=== PATIENT | male | born 1955 | race Caucasian/White ===

== ENCOUNTER 2024-07-16 17:50 | Emergency (ER) | payer MEDICARE, OTHER ==
--- NOTE | 2024-07-16 18:42 | ED ---
General Adult HPI - General Chief complaint: Extremity Injury, Lower Stated complaint: R knee pain Time Seen by Provider: 07/16/24 17:59 Source: patient Mode of arrival: ambulatory Limitations: no limitations - History of Present Illness Initial comments: 69-year-old male presenting with chief complaint of right knee pain. He reports that on Monday he knelt down onto the knee and since then he has had pain and swelling. Patient and report that this has happened in the past. [facility] but was unable to get in sooner so he came here. There is some mild redness but this seems to be directly over the area of pressure and does not encompass the entire joint. No fever. No other injury. No numbness or tingling. - Related Data Allergies Allergy/AdvReac Type Severity Reaction Status Date / Time aspirin AdvReac Swelling Verified 07/16/24 17:57 lisinopril AdvReac Swelling Verified 07/16/24 17:57 Review of Systems ROS Statement: Those systems with pertinent positive or pertinent negative responses have been documented in the HPI. ROS Other: All systems not noted in ROS Statement are negative. Past Medical History Past Medical History: COPD, Hypertension History of Any Multi-Drug Resistant Organisms: None Reported Past Surgical History: Heart Catheterization With Stent Past Psychological History: No Psychological Hx Reported Smoking Status: Former smoker Past Alcohol Use History: Occasional Past Drug Use History: None Reported General Exam Limitations: no limitations General appearance: alert, in no apparent distress Head exam: Present: atraumatic, normocephalic, normal inspection Eye exam: Present: normal appearance, EOMI Neck exam: Present: normal inspection. Absent: meningismus Respiratory exam: Absent: respiratory distress Cardiovascular Exam: Present: regular rate Right Knee exam: Present: tenderness, swelling Neurological exam: Present: alert, oriented X3 Psychiatric exam: Present: normal affect, normal mood Skin exam: Present: warm, dry, intact Course Vital Signs 07/16/24 07/16/24 17:54 20:02 Temperature 97.5 F L 98.1 F Pulse Rate 82 74 Respiratory 18 16 Rate Blood Pressure 155/80 142/80 O2 Sat by Pulse 96 98 Oximetry Medical Decision Making - Medical Decision Making Was pt. sent in by a medical professional or institution (, PA, MEDICAL CENTER DIRECTOR, urgent care, hospital, or prison...) When possible be specific @ -No Did you speak to anyone other than the patient for history (EMS, parent, family, police, friend...)? What history was obtained from this source @ - Did you review nursing and triage notes (agree or disagree)? Why? @ -I reviewed and agree with nursing and triage notes Were old charts reviewed (outside hosp., previous admission, EMS record, old EKG, old radiological studies, urgent care reports/EKG's, prison records)? Report findings @ -No old charts were reviewed Differential Diagnosis (chest pain, altered mental status, abdominal pain women, abdominal pain men, vaginal bleeding, weakness, fever, dyspnea, syncope, headache, dizziness, GI bleed, back pain, seizure, CVA, palpatations, mental health, musculoskeletal)? @ -Differential Musculoskeletal Muscular strain, contusion, ligament sprain, fracture, arthritis, septic arthritis, bursitis, cellulitis, muscle spasm, nerve compression, DVT, arterial occlusion, herpes zoster, electrolyte abnormality, tumor.... This is not meant to be in all inclusive list EKG interpreted by me (3pts min.). @ -As above X-rays interpreted by me (1pt min.). @ -X-ray shows no acute osseous pathology. Small suprapatellar joint effusion. Mild prepatellar soft tissue swelling CT interpreted by me (1pt min.). @ -None done U/S interpreted by me (1pt. min.). @ -None done What testing was considered but not performed or refused? (CT, X-rays, U/S, lab s)? Why? @ -None What meds were considered but not given or refused? Why? @ -None Did you discuss the management of the patient with other professionals (professionals i.e. , PA, MEDICAL CENTER DIRECTOR, lab, RT, psych nurse, social media job titles, block paver, teacher, labor relations officer, bilingual case manager)? Give summary @ -No Was smoking cessation discussed for >3mins.? @ -No Was critical care preformed (if so, how long)? @ -No Were there social determinants of health that impacted care today? How? (Homelessness, low income, unemployed, alcoholism, drug addiction, transportation, low edu. Level, literacy, decrease access to med. care, [place] [facility], rehab)? @ -No Was there de-escalation of care discussed even if they declined (Discuss DNR or withdrawal of care, Hospice)? DNR status @ -No What co-morbidities impacted this encounter? (DM, HTN, Smoking, COPD, CAD, Cancer, CVA, ARF, Chemo, Hep., AIDS, mental health diagnosis, sleep apnea, morbid obesity)? @ -None Was patient admitted / discharged? Hospital course, mention meds given and route, prescriptions, significant lab abnormalities, going to OR and other pertinent info. @ -69-year-old male presenting with chief complaint of right knee pain and swelling. History and physical examination are conducted. He does have some mild redness over the knee, this is not hooker red erythema does not appear consistent with cellulitis. No breaks in the skin. There is some localized swelling over the knee but no true joint swelling. He does have normal range of motion. Mildly elevated BUN and creatinine, patient has history of CKD. The x- ray shows no acute osseous pathology. Most likely due to bursitis. Patient states that he has had this swelling in the past as well. He never required any antibiotics, at one point he did follow-up with orthopedics and he did have it drained. He does have an upcoming appointment with orthopedics in July. Educated on supportive management at home and instructed to follow-up at his scheduled appointment. Provided with pain meds for home. Follow-up with PCP. Report back to ER with any new or worsening symptoms. Discussed return parameters and answered all questions. Patient conveyed verbal understanding and agreed to the plan. I discussed this case in detail with my attending Dr. Britt Undiagnosed new problem with uncertain prognosis? @ -No Drug Therapy requiring intensive monitoring for toxicity (Heparin, Nitro, Insulin, Cardizem)? @ -No Were any procedures done? @ -No Diagnosis/symptom? @ -Bursitis Acute, or Chronic, or Acute on Chronic? @ -Acute Uncomplicated (without systemic symptoms) or Complicated (systemic symptoms)? @ -Uncomplicated Side effects of treatment? @ -No Exacerbation, Progression, or Severe Exacerbation? @ -No Poses a threat to life or bodily function? How? (Chest pain, [place], MA, pneumonia, PE, COPD, DKA, ARF, appy, cholecystitis, CVA, Diverticulitis, Homicidal, Suicidal, threat to staff... and all critical care pts) @ -Unlikely - Lab Data Result diagrams: 07/16/24 18:40 07/16/24 18:40 Lab Results 07/16/24 07/16/24 Range/Units 18:40 18:40 WBC 11.82 H (4.50-10.00) 10*3/uL RBC 4.53 (4.40-5.60) 10*6/uL Hgb 15.0 (13.0-17.0) g/dL Hct 41.6 (39.6-50.0) % MCV 91.8 (80.0-97.0) fL MCH 33.1 H (27.0-32.0) pg MCHC 36.1 (32.0-37.0) g/dL Plt Count 276 (140-440) 10*3/uL MPV 9.3 L (9.5-12.2) fL Immature Gran % (Auto) 0.7 % Neutrophils % 73.1 % Lymphocytes % 13.5 % Monocytes % 9.2 % Eosinophils % 3.0 % Basophils % 0.5 % Immature Gran # 0.08 H (0.00-0.04) 10*3/uL Neutrophils # 8.63 H (1.80-7.70) 10*3/uL Lymphocytes # 1.60 (0.90-5.00) 10*3/uL Monocytes # 1.09 H (0.20-1.00) 10*3/uL Eosinophils # 0.36 H (0.04-0.35) 10*3/uL Basophils # 0.06 (0.00-0.10) 10*3/uL Sodium 140 (137-145) mmol/L Potassium 3.3 L (3.5-5.1) mmol/L Chloride 104 (98-107) mmol/L Carbon Dioxide 25 (22-30) mmol/L Anion Gap 11 mmol/L BUN 29 H (9-20) mg/dL Creatinine 1.86 H (0.66-1.25) mg/dL Est GFR (CKD-EPI)AfAm 42 (>60 ml/min/1.73 sqM) Est GFR (CKD-EPI)NonAf 36 (>60 ml/min/1.73 sqM) Glucose 152 H (74-99) mg/dL Uric Acid 4.2 (3.5-8.5) mg/dL Calcium 9.8 (8.4-10.2) mg/dL Total Bilirubin 0.6 (0.2-1.3) mg/dL AST 46 (17-59) U/L ALT 49 (4-49) U/L Alkaline Phosphatase 61 (38-126) U/L Total Protein 6.7 (6.3-8.2) g/dL Albumin 3.7 (3.5-5.0) g/dL Disposition Clinical Impression: Bursitis Disposition: HOME SELF-CARE Condition: Good Instructions (If sedation given, give patient instructions): Knee Bursitis (ED) Additional Instructions: Follow-up with your orthopedic doctor. Take medication as prescribed. Rest ice and elevate the leg. You may use Prakash wrap for some gentle compression over the area. Is patient prescribed a controlled substance at d/c from ED?: No Referrals: Heather Sears DO [Primary Care Provider] - 1-2 days Joaquin Singh DO [Doctor of Osteopathic Medicine] - 1-2 days Time of Disposition: 19:56
[2024-07-16 18:47] LABS: Basophils # (A) 0.06 10*3/uL (0.00-0.10); Basophils % (A) 0.5 %; Eosinophils # (A) 0.36 10*3/uL (0.04-0.35); HCT 41.6 % (39.6-50.0); Lymphocytes % (A) 13.5 %; MCH 33.1 pg (27.0-32.0); MCHC 36.1 g/dL (32.0-37.0); MCV 91.8 fL (80.0-97.0); Mean Platelet Volume 9.3 fL (9.5-12.2); Monocytes # (A) 1.09 10*3/uL (0.20-1.00); Monocytes % (A) 9.2 %; Neutrophils # (A) 8.63 10*3/uL (1.80-7.70); Neutrophils % (A) 73.1 %; Platelet Count 276 10*3/uL (140-440); RBC 4.53 10*6/uL (4.40-5.60); RDW 12.1 % (11.5-14.5); WBC 11.82 10*3/uL (4.50-10.00)
[2024-07-16] MEDS: MORPHINE SULFATE 4 MG/ML SYRINGE IVP STA (18:56)
[2024-07-16 18:57] LABS: ALT 49 U/L (4-49); AST 46 U/L (17-59); African American GFR (CKD) 42 (>60 ml/min/1.73 sqM); Albumin 3.7 g/dL (3.5-5.0); Alkaline Phosphatase 61 U/L (38-126); Anion Gap 11 mmol/L; Blood Urea Nitrogen 29 mg/dL (9-20); Calcium 9.8 mg/dL (8.4-10.2); Carbon Dioxide 25 mmol/L (22-30); Chloride 104 mmol/L (98-107); Glucose 152 mg/dL (74-99); Non-African American GFR(CKD) 36 (>60 ml/min/1.73 sqM); Potassium 3.3 mmol/L (3.5-5.1); Sodium 140 mmol/L (137-145); Total Bilirubin 0.6 mg/dL (0.2-1.3); Total Protein 6.7 g/dL (6.3-8.2); Uric Acid 4.2 mg/dL (3.5-8.5)
--- NOTE | 2024-07-16 19:00 | XR ---
EXAMINATION TYPE: XR knee complete RT DATE OF EXAM: 07/16/2024 6:54 PM INDICATION: Patient age:Male; 69 years old; Reason for study: pain; PHH. pain COMPARISON: None. TECHNIQUE: The Right knee(s) was examined in Frontal, lateral and oblique projections. FINDINGS: No evidence of any acute osseous pathology. Small suprapatellar joint effusion. Mild prep atellar soft tissue swelling. Vascular sclerosis with popliteal vascular stent. Surgical clips within the medial left thigh soft tissues. IMPRESSION: 1. No acute osseous pathology. 2. Small suprapatellar joint effusion. 3. Mild prepatellar soft tissue swelling. [facility], , 07/16/2024 6:58 PM
[2024-07-16] MEDS: ACET/COD 300 MG/30 MG STARTER PACK 6 TAB BTL PO STA (19:59)
[2024-07-16 20:03] VITALS: BP 142/80; PULSE 74; RESP 16; TEMP 98.1
== END 2024-07-16 20:16 | disposition home or self-care (01) ==
LOC: EC 17:50
DX: M70.51 Other bursitis of knee, right knee (principal); Z87.891 Personal history of nicotine dependence; Z88.6 Allergy status to analgesic agent; Z88.8 Allergy status to other drugs, medicaments and biological substances
CPT/HCPCS: 36415; 80053; 84550; 85025; 73562; 99283; 96374; J2270